=== PATIENT | female | born 1955 | race Asian ===

== ENCOUNTER 2017-03-06 06:14 | Inpatient (IN) | payer BC ==
[~2017-03-06] VITALS: Ht 165.1 cm; Wt 85.6 kg
[~2017-03-06 06:14] MED LIST: NEXI40CA PO; PROP120C PO; PROP60TA PO; RANI150T PO; SIMV20TA PO; VITA1000 PO
[2017-03-06] MEDS ORDERED: POVIDONE IODINE 5% (ANTISEPSIS KIT) 4 APPLICATIONS EACH NARE PRN (07:00)
[2017-03-06] MEDS ORDERED: CHLORHEXIDINE GLUCONATE 2 % 1 PACK (2 CLOTHS) TOPICAL PRN (07:00)
[2017-03-06] MEDS ORDERED: LACTATED RINGER'S 1000 ML IV PRN (07:00)
[2017-03-06] MEDS ORDERED: METOPROLOL TARTRATE 25 MG TAB PO PRN (07:00)
[2017-03-06] MEDS ORDERED: SODIUM CHLORID 0.9% 500 ML IV PRN (07:00)
[2017-03-06] MEDS ORDERED: ARTIFICIAL TEARS OPTH OINT 3.5 APPLIC/3.5 GM TUBO ONE (07:10)
[2017-03-06] MEDS ORDERED: ceFAZolin 2 GM PREMIX 50 ML IV SCH (07:15)
[2017-03-06] MEDS ORDERED: BUPIVACAINE LIPOSOME PF 1.3% 20 ML VIAL ONE ×2 (07:24→07:28)
[2017-03-06] MEDS ORDERED: BUPIVACAINE/EPINEPHRINE 0.25% PF 30 ML VIAL ONE (07:27)
[2017-03-06] MEDS ORDERED: SUGAMMADEX SODIUM 200 MG/2 ML VIAL IV PUSH ONE (10:21)
[2017-03-06] MEDS ORDERED: Post-op Orders (for Pharmacy) XX ONE (11:44)
--- NOTE | 2017-03-06 11:58 | PD.OP ---
Operative Report Date of Surgery: Mar 06, 2017 Preoperative Diagnosis: recurrent ventral incisional hernia, prior placement of physiomesh, abdominal pain. Postoperative Diagnosis: same. Procedure: diagnostic laparoscopy, lap adhesiolysis, lap removal physiomesh open repair recurrent ventral incisional hernia with modified separation of components placement of retrorectus mesh 10 x 14 excision of skin and SQ fat 6 x 14 cm BRAYAN dressing. Anesthesia: general Surgeon: Stas Boggs Screen And Cyclone Repairer(s): Kristyn Operation and Findings: physiomesh eventrated into hernia defect, adhesion of omentum to physiomesh. Portion of mesh removed and sent for gross only pathology. 10 x 14 atrium prolite mesh placed in retrorectus space. EBL 150 ml. Stas Boggs MD Mar 06, 2017 11:58
[2017-03-06] MEDS ORDERED: MIDAZOLAM HCL 2 MG/2 ML VIAL ONE (11:59)
[2017-03-06] MEDS ORDERED: DEXAMETHASONE SOD PHOS 4 MG/ML VIAL IV ONE (12:00)
[2017-03-06] MEDS ORDERED: LACTATED RINGER'S 1000 ML INJ 1,000 ML IV ONE (12:00)
[2017-03-06] MEDS ORDERED: ROCURONIUM INJ 50 MG/5 ML SYRINGE IV PUSH ONE (12:00)
[2017-03-06] MEDS ORDERED: KETOROLAC TROMETHAMINE 30 MG/ML (IVP) VIAL IV PUSH ONE (12:00)
[2017-03-06] MEDS ORDERED: diphenhydrAMINE HCL 25 MG CAP PO PRN (12:00)
[2017-03-06] MEDS ORDERED: PHENYLEPH/NS 1000 MCG/10 ML SYR IV ONE (12:00)
[2017-03-06] MEDS ORDERED: MORPHINE SULFATE 8 MG/ML INJ IV PUSH PRN (12:00)
[2017-03-06] MEDS ORDERED: ONDANSETRON HCL 4 MG/2 ML VIAL IV PUSH ONE (12:00)
[2017-03-06] MEDS ORDERED: GLYCOPYRROLATE 1 MG/5 ML SYRINGE IV PUSH ONE (12:00)
[2017-03-06] MEDS ORDERED: PROPOFOL 200 MG/20 ML AMP IV ONE (12:00)
[2017-03-06] MEDS ORDERED: ONDANSETRON HCL 4 MG/2 ML VIAL IV PUSH PRN (12:00)
[2017-03-06] MEDS ORDERED: NEOSTIGMINE 5 MG/5 ML SYRINGE IV PUSH ONE (12:00)
[2017-03-06] MEDS ORDERED: *morphine SULFATE 8 MG/ML PERIprocedure ONLY ONE (12:13)
[2017-03-06] MEDS ORDERED: *morphine SULFATE 4 MG/ML PERIprocedure ONLY ONE (12:26)
[2017-03-06] MEDS: LACTATED RINGER'S 1000 ML INJ 1,000 ML IV SCH ×2 (12:30→20:50)
[2017-03-06] MEDS ORDERED: DO NOT ADM ANY ANTICOAGULANT DRUGS PRN (12:30)
--- NOTE | 2017-03-06 12:49 | MP ---
cc: ANTONIA BOCANEGRA,JONAS HOLGUINADENYUNIOR DATE OF SURGERY: 03/06/2017 PREOPERATIVE DIAGNOSIS Recurrent ventral incisional hernia, prior placement of Physiomesh, abdominal pain. POSTOPERATIVE DIAGNOSIS Recurrent ventral incisional hernia, prior placement of Physiomesh, abdominal pain. PROCEDURE Diagnostic laparoscopy, laparoscopic adhesiolysis, laparoscopic removal of Physiomesh, open repair recurrent ventral incisional hernia with modified separation components with placement of retro rectus mesh 10 x 14 cm, excision of skin and subcutaneous fat 6 x 14 cm, placement of BRAYAN dressing. SURGEON Dr. Jonas Boggs. ANESTHESIA General. 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 About 6-7 months ago she started to develop pain and a bulge about 1-2 [address] A CT scan showed a recurrent hernia in the supraumbilical location involving fat, no bowel. She was debilitated by her pain and wanted the mesh removed. INTRAOPERATIVE FINDINGS Physiomesh eventrating into the recurrent ventral incisional hernia defect. Mesh densely adherent to a portion of the omentum. About half the mesh was able to be excised and removed from the peritoneal cavity. It was determined it was to the patient's benefit to leave the densely adherent mesh to the omentum. The previous scar and about 6 x 14 cm of skin and subcutaneous fat was excised. Modified component separation was performed and retro rectus Atrium ProLite mesh placed. Estimated blood loss 150 mL. DESCRIPTION OF PROCEDURE IN DETAIL The patient was identified as Liliane Wadsworth, taken to the operating room and placed in the supine position. Sequential compression devices were placed on bilateral lower extremities. Following induction of adequate general endotracheal anesthesia, the patient's abdomen was prepped and draped in usual sterile fashion with Betadine. A time-out procedure was performed. Following completion of time-out procedure to everyone's satisfaction within the room additional local anesthetic was placed in the left lateral subcostal position and a 2 cm transverse incision carried out with scalpel. Dissection continued posteriorly through the layers of the abdominal wall and the peritoneum was entered with the surgeon's finger. The applied medical balloon Mone trocar was placed in the peritoneal cavity, its balloon inflated with C02 insufflation until a level of 15 mmHg ensued. There was no evidence of injury to intra-abdominal tissue by placement of the initial trocar. The laparoscope demonstrated adhesions of the omentum to the midline. There was a free spot in the left lower quadrant of the abdomen where a 5-mm trocar was placed. This allowed for adhesiolysis which was performed using blunt grasper and scissors. I was able to identify the mesh and a plane between the mesh and the abdominal wall was developed allowing for placement of an additional 5 mm trocar in the infraumbilical midline position through a previous incisional scar. This facilitated dissection of the mesh off the anterior abdominal wall. In manipulation of the mesh it was easy to create defects in the mesh. At the center of the mesh where the recurrent hernia was located, there was definitely eventration of the mesh into the hernia defect and fatty tissue along with it. It is difficult to tell clinically whether an actual defect in the mesh or just eventration of the mesh into the hernia defect was occurring. Nevertheless, the mesh was completely removed from the anterior abdominal wall. Upon doing this, it was noted that omental tissue and no bowel was stuck to the mesh. There was a portion of the mesh inferiorly about a third to a half that was free of the omentum and this was excised, placed into an Endo-retriever bag and removed through the left lateral subcostal port site. It was determined that to tease the remainder of the mesh off the omentum or do an omentectomy would not be beneficial to the patient and the remainder was left behind. The suction irrigation device was used to suction out the bloody fluid from the adhesiolysis where the mesh had been adherent to the anterior peritoneum. There was no active hemorrhage. The trocars were removed under direct visualization. There was no evidence of bleeding from trocar sites. The abdomen was desufflated through the subcostal port was then removed. Subcostal fascial defects were approximated with interrupted 0 Vicryl sutures in the posterior and anterior fascial layers. Attention was then turned to the open portion of the procedure. The previous incision in the upper midline was identified and an elliptical proposed incision was made with a marking pen and carried out with a scalpel. The scar and skin was excised with electrocautery and discarded. The dissection continued posteriorly through the midline until the fascial defect was identified. The peritoneum was entered and the peritoneal incision was opened the length of the skin incision. Separation of components was performed on both sides, the posterior fascia and peritoneum from the overlying rectus muscle. This was performed laterally at least 5 cm from the edge of the intact fascia on each side and superiorly about 4 cm above and below the defect. The posterior fascial and peritoneum were then approximated with a running 0-PDS suture. This layer was irrigated with saline. A couple of small defects were approximated with 2-0 Vicryl sutures. The area was measured and a 10 x 14 football shaped piece of Atrium ProLite mesh was cut from a 6 x 6 inch piece of the mesh and placed in the retro rectus position, held at the 12 and 6 o'clock positions with 2-0 PDS sutures. 2-0 PDS was then placed at the 3 and 9 o'clock positions making the mesh taut. Two additional stay sutures were placed from the mesh to the posterior fascia between each positions of the previously placed suture between 12 and 3 o'clock, 3 and 6, 6 and 9 and 9 and 12. The mesh was taut in the retro rectus position. Irrigation again ensued, there was no evidence of bleeding. Attention was then turned to mobilization of the anterior rectus fascia which was performed on both sides the subcutaneous fatty tissue from the anterior rectus fascia. This allowed for mobilization of fascia and rectus muscle to the midline and it was closed with running #1 single stranded PDS suture. This resulted in some redundant skin and subcutaneous fatty tissue and additional elliptical incision was marked with a marking pen and carried out with scalpel and the skin and subcutaneous fat measuring 6 x 14 cm was excised using the electrocautery and the skin and subcutaneous fat was discarded. The subcutaneous space between it and the remaining anterior rectus fascia was then quilted closed with multiple interrupted 2-0 Vicryl sutures. 2-0 Vicryl was used in layers to approximate the subcutaneous fatty tissue layer and all skin incisions were then approximated with 4-0 Monocryl subcuticular sutures. Mastisol and half-inch brown Steri-Strips were placed at the trocar sites. A BRAYAN dressing was placed in a standard fashion over the midline incision and connected to suction and then to the battery box with good suction of the dressing. Abdominal binder was placed. The patient tolerated the procedure without apparent complication. Sponge, needle and instrument counts were correct at the end of the case. MD IVETTE Cuellar/MICHELLE /11:48 AM /12:14 PM
[2017-03-06] MEDS ORDERED: ACETAMINOPHEN 1000 MG/100 ML 100 ML IV ONE (13:45)
[2017-03-06] MEDS: ACETAMINOPHEN/HYDROcodone 325 MG/5 MG TAB PO PRN ×2 (15:54→20:50)
[2017-03-06 16:31] VITALS: BP 122/69; PULSE 56; RESP 16; TEMP 98.4; O2SAT 96
[2017-03-06 20:00] VITALS: BP 100/55; PULSE 52; RESP 20; TEMP 97.8; O2SAT 93
[2017-03-06] MEDS: DOCUSATE SODIUM 100 MG CAP PO SCH (20:50)
--- NOTE | 2017-03-06 23:25 | EKG ---
Date Performed: 03/06/2017 Time Performed: 06:53:21 PTAGE: 61 years EKG: SINUS BRADYCARDIA BORDERLINE ECG NO PREVIOUS TRACING DOCTOR: Jeremy Stacy Interpretating Date/Time 03/06/2017 23:25:04
[2017-03-07] VITALS (8 sets, daily range): BP systolic 90–134; BP diastolic 55–70; PULSE 54–66; RESP 16–20; TEMP 97.2–98.6; O2SAT 89–94
[2017-03-07] MEDS: ACETAMINOPHEN/HYDROcodone 325 MG/5 MG TAB PO PRN ×4 (02:24→17:58)
[2017-03-07] MEDS: LACTATED RINGER'S 1000 ML INJ 1,000 ML IV SCH ×2 (07:58→16:56)
[2017-03-07] MEDS: DOCUSATE SODIUM 100 MG CAP PO SCH ×2 (08:18→19:41)
[2017-03-07] MEDS: PRAVASTATIN SOD 40 MG TAB PO SCH (08:19)
[2017-03-07] MEDS: MAGNESIUM HYDROXIDE SUSP 30 ML CUP PO PRN ×2 (08:19→19:41)
[2017-03-07] MEDS: PANTOPRAZOLE SOD 40 MG DELAYED RELEASE TAB PO SCH (08:19)
[2017-03-07] MEDS: PROPRANOLOL HCL LA 120 MG CAP PO SCH (09:00)
[2017-03-07] MEDS: CHOLECALCIFEROL (VIT D3) 1000 UNIT TAB PO SCH (09:00)
[2017-03-07] MEDS ORDERED: INFLUENZA VIRUS VACCINE (QUADRIVALENT) 0.5 ML SYR IM ONE (10:00)
[2017-03-07] MEDS: ENOXAPARIN SODIUM 40 MG/0.4 ML SYRINGE SQ SCH (11:38)
--- NOTE | 2017-03-07 17:33 | HHI.PR ---
Subjective Subjective Notes doing well, pain, but tolerable. Has been walking halls, passing flatus, no BM. Voiding urine. Daughter at bedside. Wants to take her Zantac. Has a tickle in her throat, a dry cough. Objective Vitals/I&O Vital Signs Date Time Temp Pulse Resp B/P (MAP) Pulse Ox O2 Delivery O2 Flow Rate FiO2 03/07/17 16:00 97.8 66 17 134/70 (91) 93 03/06/17 15:10 Nasal Cannula 3 Cardiovascular: Regular Lungs: Clear Abdomen: Non-distended, Other (BRAYAN dressing dry and intact. No erythema.), Post-op tenderness, BS normal Extremities: No edema, Perfused, SCD's on A/P Assessment and Plan POD 1 s/p lap removal physiomesh, open repair recurrent VIH with modified separation of components, retrorectus mesh, excision of skin and SQ fat, BRAYAN. Doing well. Add zantac, miralax. Ensure vanilla. Continue to walk halls. Anticipate DC tomorrow if bowels work. Stas Boggs MD Mar 07, 2017 17:33
[2017-03-07] MEDS: POLYETHYLENE GLYCOL 17 GM PKG PO SCH (18:03)
[2017-03-08] VITALS: BP 129/70; PULSE 59; RESP 16; TEMP 97.3; O2SAT 95
[2017-03-08] MEDS: ACETAMINOPHEN/HYDROcodone 325 MG/5 MG TAB PO PRN ×3 (02:53→15:54)
[2017-03-08] MEDS: LACTATED RINGER'S 1000 ML INJ 1,000 ML IV SCH ×3 (03:59→22:01)
[2017-03-08 08:00] VITALS: BP 144/66; PULSE 86; RESP 19; TEMP 99.8; O2SAT 96
[2017-03-08] MEDS: PRAVASTATIN SOD 40 MG TAB PO SCH (08:01)
[2017-03-08] MEDS: CHOLECALCIFEROL (VIT D3) 1000 UNIT TAB PO SCH (08:02)
[2017-03-08] MEDS: PANTOPRAZOLE SOD 40 MG DELAYED RELEASE TAB PO SCH (08:02)
[2017-03-08] MEDS: POLYETHYLENE GLYCOL 17 GM PKG PO SCH (08:02)
[2017-03-08] MEDS: DOCUSATE SODIUM 100 MG CAP PO SCH ×2 (08:02→21:06)
[2017-03-08] MEDS: PROPRANOLOL HCL LA 120 MG CAP PO SCH (08:02)
--- NOTE | 2017-03-08 10:29 | HHI.PR ---
Subjective Subjective Notes On 4 Liters NC, had SOB after walking halls off O2. Sats 94% on O2. Had small BM, passing flatus. Tolerating po well, no Nausea. Pain well controlled. Objective Vitals/I&O Vital Signs Date Time Temp Pulse Resp B/P (MAP) Pulse Ox O2 Delivery O2 Flow Rate FiO2 03/08/17 08:00 99.8 86 19 144/66 (92) 96 03/06/17 15:10 Nasal Cannula 3 Cardiovascular: Regular Lungs: Clear, Other (mild mild exp wheeze R side.) Abdomen: Non-distended, Other (BRAYAN intact with no drainage. Other incisions clean and dry, no erythema. BSs active.), Post-op tenderness Extremities: No edema, Perfused, SCD's on A/P Assessment and Plan POD 2 s/p lap removal physiomesh, open repair recurrent VIH with modified separation of components, retrorectus mesh, excision of skin and SQ fat, BRAYAN. SOB, likely related to atelectasis. Low grade fever. No rales. Will add albuterol nebs. Had BM, flatus. Hold DC until tomorrow, should improve with walking, nebs. D/W patient, daughter, RN at bedside. Stas Boggs MD Mar 08, 2017 10:29
[2017-03-08] MEDS: ENOXAPARIN SODIUM 40 MG/0.4 ML SYRINGE SQ SCH (11:38)
[2017-03-08 12:00] VITALS: BP 100/59; PULSE 58; RESP 20; TEMP 98; O2SAT 93
[2017-03-08] MEDS ORDERED: RESP: ALBUTEROL CONC 2.5 MG/0.5 ML NEB NEB SCH (12:00)
[2017-03-08 16:00] VITALS: BP 138/85; PULSE 62; RESP 20; TEMP 98.9; O2SAT 95
[2017-03-08] MEDS: RESP: ALBUTEROL 2.5 MG/3 ML NEB (SCH) INH ×2 (16:39→21:41)
[2017-03-08 20:00] VITALS: BP 122/60; PULSE 68; RESP 18; TEMP 98.1; O2SAT 93
[2017-03-08] MEDS ORDERED: ACETAMINOPHEN 500 MG CPLT PO PRN (22:00)
[2017-03-09] VITALS: BP 95/53; PULSE 67; RESP 18; TEMP 98.2; O2SAT 93
[2017-03-09] MEDS: RESP: ALBUTEROL 2.5 MG/3 ML NEB (SCH) INH ×2 (04:35→10:05)
[2017-03-09] MEDS: ACETAMINOPHEN/HYDROcodone 325 MG/5 MG TAB PO PRN ×2 (05:18→11:16)
[2017-03-09] MEDS: LACTATED RINGER'S 1000 ML INJ 1,000 ML IV SCH (07:57)
[2017-03-09] MEDS: POLYETHYLENE GLYCOL 17 GM PKG PO SCH (07:59)
[2017-03-09] MEDS: PROPRANOLOL HCL LA 120 MG CAP PO SCH ×2 (07:59→08:15)
[2017-03-09] MEDS: PRAVASTATIN SOD 40 MG TAB PO SCH (07:59)
[2017-03-09] MEDS: PANTOPRAZOLE SOD 40 MG DELAYED RELEASE TAB PO SCH (07:59)
[2017-03-09] MEDS: DOCUSATE SODIUM 100 MG CAP PO SCH (07:59)
[2017-03-09] MEDS: CHOLECALCIFEROL (VIT D3) 1000 UNIT TAB PO SCH (07:59)
[2017-03-09 08:00] VITALS: BP 109/61; PULSE 61; RESP 15; TEMP 97; O2SAT 95
[2017-03-09] MEDS ORDERED: NORC5TAB PO (09:36)
--- NOTE | 2017-03-09 09:40 | HHI.DS ---
Discharge Summary Admission Date Mar 06, 2017 at 12:03 Discharge Date: Mar 09, 2017 Admitting Diagnosis recurrent VIH, abdominal pain Procedures See op note, laparoscopy, open repair VIH with MCS, retrorectus mesh, etc. Brief History 61 year old with prior lap repair VIH with physiomesh elsewhere, recurred, pain. Desires mesh removal, repair. Significant Findings eventration of mesh into defect. Portion of mesh removed. Open repair successful. PE at Discharge Incisions healing well, BRAYAN dressing intact. Lungs clear. Extremities without edema. Hospital Course Admitted through [facility], had surgery. Recovered well. Atelectasis treated with IS and albuterol. Had stool softeners and miralax and had flatus and BMs. Wants to go home today. Pt Condition on Discharge: Good Discharge Disposition: Discharge Home Discharge Instructions DIET: Follow Instructions for: As Tolerated, No Restrictions Activities you can perform: Shower Only-No Bath Activities to Avoid: Strenuous Activity, Driving Stas Boggs MD Mar 09, 2017 09:40
[2017-03-09] MEDS ORDERED: RESP: ALBUTEROL 2.5 MG/3 ML NEB (PRN) INH (10:00)
[2017-03-09] MEDS: ENOXAPARIN SODIUM 40 MG/0.4 ML SYRINGE SQ SCH (10:35)
== END 2017-03-09 12:05 | disposition home or self-care (01) | DRG 354 ==
LOC: HSDC 06:14 → N07B 12:03
PROVIDERS: ADMIT Surgery Trauma Surgery; ATTEND Surgery Trauma Surgery
PROC: 0WPF4JZ Removal of Synthetic Substitute from Abdominal Wall, Percutaneous Endoscopic Approach (ICD-10-PCS; 2017-03-06)
PROC: 0WUF0JZ Supplement Abdominal Wall with Synthetic Substitute, Open Approach (ICD-10-PCS; principal; 2017-03-06 08:01)
PROC: 0JB80ZZ Excision of Abdomen Subcutaneous Tissue and Fascia, Open Approach (ICD-10-PCS; 2017-03-06 08:01)
DX: K43.2 Incisional hernia without obstruction or gangrene (principal); T83.7 Complications due to implanted mesh and other prosthetic materials; I10 Essential (primary) hypertension; J98.11 Atelectasis; K66.0 Peritoneal adhesions (postprocedural) (postinfection); E78.5 Hyperlipidemia, unspecified; K21.9 Gastro-esophageal reflux disease without esophagitis
CPT/HCPCS: 88305; 93005; 94150; 94640; 94664; C1781; C9290; J0131; J0690; J1100; J1650; J1885; J2250; J2270; J2370; J2405; J2710; J3010; J7120; J7613